=== PATIENT | male | born 1975 | race Two or more races ===

== ENCOUNTER 2021-04-09 18:14 | Emergency (ER) | payer SELFPAY ==
[~2021-04-09] VITALS: Ht 175.3 cm; Wt 97.1 kg
--- NOTE | 2021-04-09 19:27 | PHYS DOC ---
Past History Past Medical History: No Pertinent History Past Surgical History: No Surgical History Drug Use: None General Adult EDM: Chief Complaint: DENTAL PROBLEM HPI: HPI: 45-year-old male presents to the emergency room complaining of dental pain for the past several days. He reports pain is in the upper right side of his mouth. He denies any fever chills, trouble swallowing, trouble eating. He has been taking [id number] cream that is topical for the area. He has not followed up with the dentist. The patient denies nausea, vomiting, fever, chills, chest pain, shortness of breath, or any other complaints. Review of Systems: Review of Systems: Review of systems is otherwise negative except for what is mentioned in the HPI. Allergies: Allergies: Allergies Coded Allergies Type Severity Reaction Last Updated Verified No Known Drug Allergies 04/09/21 No Physical Exam: PE: Constitutional: No acute distress, non-toxic appearance. HENT: Dentition appears relatively normal, there is no palpable abscess, there is mild tenderness to the right wisdom tooth area. Floor the mouth is soft, uvula is midline, there is no oropharynx changes Eyes: PERRLA, EOMI, conjunctiva normal, no discharge. Neck: Normal range of motion, supple, no stridor. Skin: Warm, dry. Extremities: No tenderness, no cyanosis, ROM intact, no edema. Neurologic: Alert and oriented X 3, normal motor function, normal sensory function, no focal deficits noted. Non ataxic gait. GCS 15. Psychologic: Affect normal, judgment normal, mood normal. Current Patient Data: Vital Signs: Vital Signs Date Time Temp Pulse Resp B/P (MAP) Pulse Ox O2 Delivery O2 Flow Rate FiO2 04/09/21 18:59 98.7 84 18 125/84 97 Room Air Heart Score: C/O Chest Pain: No Course & Med Decision Making: Course & Med Decision Making Patient presents with dental pain, there is no drainable abscess, there is no sign of airway involvement, likely simple dental infection. We will discharge him to follow-up with a dentist and provided him resources for dental clinics. My Orders - LULU SAMAYOA DO Procedure Category Date Status Time Ibuprofen (Motrin) PHA 04/09/21 Transmitted 19:30 Acetaminophen PHA 04/09/21 Transmitted (Tylenol) 19:30 Departure Departure: Impression: Primary Impression: Pain, dental Disposition: HOME / SELF CARE / HOMELESS Condition: GOOD Referrals: PCP,NO (PCP) Patient Instructions: Dental Caries Additional Instructions: You were seen in the emergency department for a toothache. There does not appear to be any infection at this time. -Unfortunately, your pain is not likely to improve without seeing a dentist for further evaluation and treatment of your dentition and dental caries. You should follow up with a dentist as soon as possible and refer to the resource list for dental clinics. -Return to the ED if you develop difficulty swallowing, problems eating or drinking fluids, facial swelling, worsening pain, fever > 101, swelling, redness, or any other new or concerning symptoms you feel warrants evaluation. Scripts Chlorhexidine Gluconate (PERIDEX) 15 Ml Mouthwash 15-30 ML PO TID for dental infection for 8 Days, #473 ML 0 Refills Prov: LULU SAMAYOA DO 04/09/21 Penicillin V Potassium (PENICILLIN V POTASSIUM) 500 Mg Tablet 1 TAB PO BID for dental infection for 7 Days, #14 TAB Prov: LULU SAMAYOA DO 04/09/21 LULU SAMAYOA DO Apr 09, 2021 19:27
[2021-04-09] MEDS ORDERED: CHLO15MO2 PO (19:29)
[2021-04-09] MEDS ORDERED: PENI500T PO (19:29)
[2021-04-09] MEDS ORDERED: IBUPROFEN 600 MG TABLET. PO ONE (19:30)
[2021-04-09] MEDS ORDERED: ACETAMINOPHEN 500 MG TABLET PO ONE (19:30)
[2021-04-09 19:35] VITALS: BP 120/82
== END 2021-04-09 19:30 | disposition home or self-care (01) ==
LOC: ER 18:14
DX: K02.9 Dental caries, unspecified (principal)
CPT/HCPCS: 99283